=== PATIENT | female | born 1990 | race Two or more races ===

== ENCOUNTER → 2023-08-11 | Emergency (ER) | payer OTHER ==
[~2023-08-11] VITALS: Ht 182.9 cm; Wt 65.8 kg
[~2023-08-11] MED LIST: TETANUS & DIPHTHERIA TOX,ADULT 0.5 ML VIAL IM ONE
== END | disposition home or self-care (01) ==
LOC: ER 18:19
DX: S61.412A Laceration without foreign body of left hand, initial encounter (principal); W19.XXXA Unspecified fall, initial encounter; Y93.89 Activity, other specified; Y92.832 Beach as the place of occurrence of the external cause; Y99.8 Other external cause status